=== PATIENT | female | born 1950 | race Caucasian/White ===

== ENCOUNTER → 2017-03-03 | Outpatient (CLI) | payer OTHER | LOC: FIMAGING 07:40 | DX: Z12.31 Encounter for screening mammogram for malignant neoplasm of breast (principal) | CPT/HCPCS: G0202 ==

== ENCOUNTER → 2018-03-26 | Outpatient (CLI) | payer OTHER | LOC: FIMAGING 15:45 | DX: Z12.31 Encounter for screening mammogram for malignant neoplasm of breast (principal) ==